=== PATIENT | female | born 1940 | race Caucasian/White ===

== ENCOUNTER 2018-05-20 12:17 | Inpatient (IN) | payer MEDICARE, OTHER ==
[2018-05-20] MEDS: Dextrose 5%-0.45% NaCl 1,000 ML IV SCH ×2 (13:45→19:39)
[2018-05-20] MEDS ORDERED: Docusate Sodium 100 MG Cap PO PRN (13:58)
[2018-05-20] MEDS: cefTRIAXone 1 GM Vial IVPUSH SCH (14:53)
[2018-05-20] MEDS: Acetaminophen 325 MG Tab PO PRN ×2 (14:56→19:38)
[2018-05-20] MEDS ORDERED: TIMOLOL MALEATE PO PRN (15:17)
[2018-05-20] MEDS ORDERED: Baclofen 10 MG Tab PO PRN (15:17)
--- NOTE | 2018-05-20 17:07 | CT ---
[id number] CT/CT Head WO IV EXAM: CT Head WO IV CLINICAL DATA: CONFUSION, FALL 05-20-2018. HAD TRAUMATIC FALL WITH 6 COMPARISON STUDY: None FINDINGS: No intracranial hemorrhage, extra-axial fluid collection, mass, or acute ischemia. Mild changes of chronic small vessel disease throughout the subcortical and periventricular white matter. Paranasal sinuses and mastoid air cells are clear. IMPRESSION: No acute intracranial findings. Jose L Alaniz MD 05/20/18 [id number] Thank you for allowing us to participate in the care of your patient.
[2018-05-20] MEDS: Cholecalciferol (Vitamin D3) 1,000 Unit Tab PO SCH (19:38)
[2018-05-20] MEDS: Simvastatin 10 MG Tab PO SCH (19:38)
[2018-05-20] MEDS: Calcium Carbonate/Vitamin D3 1250 MG-200 Unit Tab PO SCH (19:38)
--- NOTE | 2018-05-20 21:58 | HP ---
CHIEF COMPLAINT: Weakness and ill. HISTORY OF PRESENT ILLNESS: The patient is a 77-year-old female seen by Minerva Mcconnell in the clinic today. She came in with having had a fall early this morning at 2 a.m. The patient had become ill about a week ago with a fever up to 103, was not having a cough, was trying to push fluids, fever on and off yesterday, some headache, lightheadedness. Then, when she went up to the bathroom this morning, she fell against the toilet seat. The toilet seat broke. She had pain on her right anterior chest wall area, pain on breathing. The patient denied passing out or loss of consciousness. She was seen in the clinic by Minerva Mcconnell. The patient has been trying to drink a lot of fluid. She has not had vomiting or throwing up. The patient was having chest pain with inspiration. She was feeling lightheaded. Physical exam in the clinic; she was noted to have a blood pressure 118/80, pulse 80, temperature 96.4, sats are 98% on room air. LABORATORY DATA: Her lab work in the clinic had been done that showed her white blood cell count 5.8, hemoglobin 12.6 with 198 platelets with 83 lymphs, 6 monos. Influenza testing was negative. Her sodium was 130, her potassium 4.7, creatinine 0.88, BUN 15, glucose 146, chloride 94, AST 78, ALT 55, total bili 0.4, alk phos 124, GFR is 62. Urinalysis had 15 ketones, small amount of blood, 100 mg/dL of protein, negative nitrites, negative leukocyte esterase. Plain chest x-ray did show rib fractures which were multiple, so the patient did undergo a CT scan of her chest, which showed contiguous 6th through 11th right- sided posterior rib fractures, 2 of which were mildly comminuted with a right tiny small apical pneumothorax, left lower lobe pneumonia, otherwise negative. Because of concerns for the findings, it was felt she needed to be hospitalized. MEDICATIONS: She is on Zocor 10 mg 1 pill at bedtime, Timoptic 1 drop right eye every morning, vitamin D 1000 units 1 pill 3 times a day, multivitamin 1 pill daily, calcium with vitamin D 1 pill 3 times a day, ibuprofen 200 mg 3 pills 3 times a day as needed for moderate pain, aspirin 81 mg 1 pill a day. ALLERGIES: Penicillin, Alphagan, and baclofen. PAST MEDICAL HISTORY: She has had blepharitis, dense breasts, glaucoma. She has had hyperlipidemia, osteoarthritis of her left hand, osteoporosis. She has had a posterior vitreous detachment. PAST SURGICAL HISTORY: She has had lesions from her left eye. She has had a breast surgery on the right. Core needle biopsy in the right. She has had a selective trabeculectomy on the right, first breast biopsy was in 2008, had cataracts in 2006. She had a colonoscopy. She had eye surgery, fractures, laser trabeculectomy in the left in 2006. The patient had hepatitis B vaccine in 2008, hepatitis A series in 2001 and 2002. She had IPV in 2003, pneumococcal 13 in 2014, pneumococcal 23 in 2007, Tdap in 2011, typhoid in 2006, varicella in 2008, yellow fever in 2007, Zostavax in 2008, Shingrix on 09/13/2017. FAMILY MEDICAL HISTORY: Her father has had heart disease, glaucoma, and alcohol abuse. Mother has had osteoporosis, glaucoma. Maternal grandmother had cancer, leukemia. Brother has had alcohol abuse and the brother has alcohol abuse. The brother has had a hip replacement. She had a sister who had cataracts and glaucoma. SOCIAL HISTORY: She is . The patient is a retired middle school reading teacher. Her is a retired principal. They enjoy world travel. She has a son who is a dentist. The patient does not smoke. She has never used alcohol. REVIEW OF SYSTEMS: The patient is very physically fit. She normally walks quite a bit. Does have some arthritic problems with her hands. Been underweight. No problems with allergies. No nausea. No diarrhea. She has had urgency in the past. No skin lesions. Mood has been good. OBJECTIVE: Vital Signs: The patient's height is 65 inches, weight is 103, blood pressure is 118/80, temperature is 97.4, pulse 80, sats are 98%. Skin: Pale, warm, and dry. Pupils equal and reactive to light. Her pharynx is normal. Neck: Slender. No anterior cervical lymphadenopathy. Heart: Regular rate and rhythm without murmurs or bruits. Breasts are dense. Chest: Her right chest wall area is tender to palpation. There is no bruising. Back: No sores. Abdomen: Soft. Bowel sounds present. Extremities: Lower extremities slender,thin. Neurologic: The patient moves all extremities symmetric. She does appear to be a little bit vague versus a little bit confused. IMPRESSION: 1. Pneumonia. 2. Five rib fractures, 2 of which are comminuted. 3. Pneumothorax on the right. 4. Left pneumonia. 5. Hyponatremia. 6. Osteoporosis. 7. Hypercholesterolemia. PLAN: The patient will be admitted to acute care. We will give IV hydration. We will give her oxygen therapy to help with re-expansion of lungs. She does not require chest tube at this time. We will do an EKG on the patient and place her on Rocephin, being aware that she does have a penicillin allergy. The patient is code level 1 status, and anticipate her to be discharged home. We will make sure that she does not become constipated. We will offer her Tylenol or ibuprofen for pain control. Right now, she may need something stronger, but we will wait to see how she goes. Only offer antithrombotic hose because of fall risk right now. Dr. Isa Mcconnell to assume care. When the patient is able, Lima Quevedo, a nurse practitioner will cover for the patient over the weekend or her covering partner. GM05/20/2018 14:19:45 MODL: 05/20/2018 21:52:40 /[id number]
[2018-05-21] MEDS: Ibuprofen 200 MG Tab PO PRN ×3 (00:59→15:27)
[2018-05-21] MEDS: Dextrose 5%-0.45% NaCl 1,000 ML IV SCH (06:38)
[2018-05-21] MEDS ORDERED: Aspirin 81 MG Tab.Chew PO SCH (08:00)
[2018-05-21] MEDS ORDERED: TIMOLOL MALEATE OP SCH (08:00)
[2018-05-21 08:04] LABS: CHLORIDE,CL 96 mmol/L (98-107); SODIUM,NA 132 mmol/L (136-145)
[2018-05-21 08:05] LABS: ANION GAP 12.2 mmol/L (10-20)
[2018-05-21] MEDS: cefTRIAXone 1 GM Vial IVPUSH SCH (08:13)
[2018-05-21] MEDS: Acetaminophen 325 MG Tab PO PRN ×2 (08:14→22:22)
[2018-05-21] MEDS: Cholecalciferol (Vitamin D3) 1,000 Unit Tab PO SCH ×3 (08:15→22:21)
[2018-05-21] MEDS: Calcium Carbonate/Vitamin D3 1250 MG-200 Unit Tab PO SCH ×3 (08:15→22:21)
[2018-05-21] MEDS: Aspirin 81 MG Tab.Chew PO SCH (08:16)
[2018-05-21] MEDS: Multivitamins with Iron/Calcium/Folic Acid/Minerals Tab PO SCH (08:16)
[2018-05-21] MEDS: TIMOLOL 0.25% EYERT SCH (08:17)
[2018-05-21] MEDS ORDERED: hydrALAZINE 20 MG/ML SDV IVPUSH ONE (11:22)
--- NOTE | 2018-05-21 11:28 | PCM.PN ---
- General Info Date of Service: 05/21/18 Admission Dx/Problem (Free Text): 1. Left side pneumonia 2. 5 rib fractures with 2 of them comminuted fractures 3. Small pneumothorax on the right 4. Hyponatremia 5. Osteoporosis 6. Hypercholesterolemia Functional Status: Reports: Pain Controlled, Tolerating Diet, Ambulating - Review of Systems General: Reports: Weakness HEENT: Reports: No Symptoms Pulmonary: Reports: Shortness of Breath, Pleuritic Chest Pain Gastrointestinal: Reports: No Symptoms Genitourinary: Reports: No Symptoms Musculoskeletal: Reports: No Symptoms Skin: Reports: No Symptoms Neurological: Reports: No Symptoms Psychiatric: Reports: No Symptoms - Patient Data Vitals - Most Recent: Last Vital Signs Temp 36.4 C 05/21/18 10:00 Pulse 56 L 05/21/18 10:00 Resp 16 05/21/18 10:00 BP 194/78 H 05/21/18 10:00 Pulse Ox 98 05/21/18 10:00 Weight - Most Recent: 47.219 kg I&O - Last 24 Hours: Intake & Output 05/20/18 05/21/18 05/21/18 22:59 06:59 14:59 Intake Total 1865 1422 400 Output Total 700 1500 900 Balance 1165 -78 -500 Lab Results Last 24 Hours: Laboratory Results - last 24 hr 05/21/18 05/21/18 Range/Units 07:36 07:36 WBC 4.2 (4.0-10.0) x10^3/uL RBC 3.41 L (4.00-5.50) x10^6/uL Hgb 11.2 L (12.0-16.0) g/dL Hct 33.0 (33.0-47.0) % MCV 96.8 H (78.0-93.0) fL MCH 32.8 H (26.0-32.0) pg MCHC 33.9 (32.0-36.0) g/dL RDW Coeff of Raj 11.9 (10.0-15.0) % Plt Count 182 (130-400) x10^3/uL Neut % (Auto) 58.2 (50.0-80.0) % Lymph % (Auto) 20.8 L (25.0-50.0) % Jones % (Auto) 17.9 H (2.0-11.0) % Eos % (Auto) 2.4 (0.0-4.0) % Baso % (Auto) 0.7 (0.2-1.2) % Sodium 132 L (136-145) mmol/L Potassium 4.2 (3.5-5.1) mmol/L Chloride 96 L (98-107) mmol/L Carbon Dioxide 28 (21-32) mmol/L Anion Gap 12.2 (10-20) mmol/L BUN 10 (7-18) mg/dL Creatinine 0.8 (0.55-1.02) mg/dL Est Cr Clr Drug Dosing 43.20 mL/min Estimated GFR (MDRD) > 60 Glucose 119 H (74-106) mg/dL Calcium 8.4 L (8.5-10.1) mg/dL Corrected Calcium 9.52 (8.5-10.1) mg/dL Total Bilirubin 0.4 (0.2-1.0) mg/dL AST 63 H (15-37) U/L ALT 58 (14-59) U/L Alkaline Phosphatase 105 (46-116) U/L C-Reactive Protein 7.5 H (<=0.9) mg/dL Total Protein 6.4 (6.4-8.2) g/dL Albumin 2.6 L (3.4-5.0) g/dL Globulin 3.8 Albumin/Globulin Ratio 0.68 Med Orders - Current: Current Medications Acetaminophen (Tylenol) 650 mg PO Q4H PRN PRN Reason: Pain (Mild 1-3)/fever Last Admin: 05/21/18 08:14 Dose: 650 mg Aspirin (Aspirin) 81 mg PO DAILY [facility] Last Admin: 05/21/18 08:16 Dose: 81 mg Baclofen (Lioresal) 5 mg PO TID PRN PRN Reason: Spasms Calcium Carbonate (Calcium Carbonate/Vitamin D 1250 Mg-200 Unit) 1 tab PO TID [facility] Last Admin: 05/21/18 08:15 Dose: 1 tab Ceftriaxone Sodium (Rocephin) 1 gm IVPUSH DAILY [facility] Last Admin: 05/21/18 08:13 Dose: 1 gm Cholecalciferol (Vitamin D3) 1,000 units PO TID [facility] Last Admin: 05/21/18 08:15 Dose: 1,000 units Docusate Sodium (Colace) 100 mg PO BID PRN PRN Reason: Constipation Ibuprofen (Motrin) 400 mg PO Q4H PRN PRN Reason: Pain/Fever Last Admin: 05/21/18 09:26 Dose: 400 mg Multivitamins/Minerals (Thera M Plus) 1 tab PO DAILY [facility] Last Admin: 05/21/18 08:16 Dose: 1 tab Patient's Own MedicationTimolol 0.25% Ophth Solution *8 0 each EYERT DAILY [facility] Last Admin: 05/21/18 08:17 Dose: 1 each Simvastatin (Zocor) 10 mg PO BEDTIME [facility] Last Admin: 05/20/18 19:38 Dose: 10 mg Sodium Chloride (Saline Flush) 10 ml FLUSH ASDIRECTED PRN PRN Reason: Keep Vein Open Discontinued Medications Hydralazine HCl (Apresoline) 10 mg IVPUSH ONETIME ONE Stop: 05/21/18 11:23 Dextrose/Sodium Chloride (Dextrose 5%-1/2 Ns) 1,000 mls @ 125 mls/hr IV ASDIRECTED [facility] Last Admin: 05/21/18 06:38 Dose: 125 mls/hr Non-Formulary Medication (Timolol Maleate [Timoptic 0.25% Ophth Soln]) 0.5 mg PO TID PRN PRN Reason: Spasms Non-Formulary Medication (Timolol Maleate [Timoptic 0.25% Ophth Soln]) 1 drop OP DAILY [facility] - Exam General: Alert, Oriented, Cooperative, No Acute Distress HEENT: Pupils Equal, Pupils Reactive, EOMI, Mucous Membr. Moist/[place] Neck: Supple Lungs: Decreased Breath Sounds Cardiovascular: Regular Rate, Regular Rhythm, Other (pain upon palpation on right side ) GI/Abdominal Exam: Normal Bowel Sounds, Soft, Non-Tender, No Distention Back Exam: Normal Inspection Extremities: Normal Inspection, Normal Range of Motion, Non-Tender, No Pedal Edema, Normal Capillary Refill Peripheral Pulses: 3+: Radial (L), Radial (R), Dorsalis Pedis (L), Dorsalis Pedis (R) Skin: Warm, Dry, Intact Neurological: No New Focal Deficit Psy/Mental Status: Alert, Normal Affect, Normal Mood - Problem List Review Problem List Initiated/Reviewed/Updated: Yes - Assessment Assessment:: 1. Left side pneumonia 2. 5 rib fractures with 2 of them comminuted fractures 3. Small pneumothorax on the right 4. Hyponatremia 5. Osteoporosis 6. Hypercholesterolemia - Plan Plan:: 1. Left side pneumonia - Pt will continue to IV Rocephin for the next 24 hours. 2. 5 rib fractures with 2 of them comminuted fractures - Pt continues to use her incentive spirometer and ambulate with staff in the halls - Pt continues to PRN pain medication as needed 3. Small pneumothorax on the right - Pt continues to use her incentive spirometer and ambulate with staff in the halls - Repeat chest xray today 4. Hyponatremia - Pt continues to increase her oral intake. As long as patient continues to take oral intake we will continue to monitor 5. Hypertension - Give IV hydralazine 10mg. Pt was given this in the Clinic with great relief. Pt has been complaining of a headache this am and her blood pressure is elevated again. This headache was also present in the clinic when they have her the hydralazine at that time. 6. Headache - Pt has PRN Tylenol and Ibuprofen as needed for discomfort. Pt did have a CT scan completed yesterday am with negative findings. Pt denies, and numbness, tingling, lightheadedness, blurred vision, memory issues, or any neuro deficits. If the patient continues to progress anticipated plan will be for discharge in 24-48 hours.
[2018-05-21] MEDS: Sodium Chloride 0.9% 10 ML Syringe FLUSH PRN (11:32)
--- NOTE | 2018-05-21 12:48 | CR ---
[id number] RAD/RAD Chest PA And Lateral EXAM: RAD Chest PA And Lateral INDICATION: PNEUMOTHORAX AND PNEUMONIA FOLLOW-UP. COMPARISON: CT chest 2018. DISCUSSION: Again identified are multiple rib fractures on the right. There is a trace apical right pneumothorax which when allowing for differences in technique is likely unchanged when compared to the prior study. Left basilar infiltrate. Pulmonary hyperinflation. IMPRESSION: 1. Trace residual right apical pneumothorax. When allowing for differences in technique, this is likely not significantly changed when compared to the prior study. 2. Left base pulmonary infiltrate. Follow-up imaging after appropriate therapy is recommended. Marito Seay DO 05/21/18 1247 Thank you for allowing us to participate in the care of your patient.
[2018-05-21] MEDS: Simvastatin 10 MG Tab PO SCH (22:22)
[2018-05-22] MEDS ORDERED: hydrALAZINE 20 MG/ML SDV IVPUSH ONE ×2 (07:44→07:52)
[2018-05-22 08:18] LABS: CHLORIDE,CL 93 mmol/L (98-107)
[2018-05-22 08:22] LABS: ANION GAP 11.5 mmol/L (10-20); SODIUM,NA 128 mmol/L (136-145)
[2018-05-22] MEDS: Ondansetron 4 MG/2 ML SDV IVPUSH PRN ×3 (08:24→21:44)
[2018-05-22] MEDS: Calcium Carbonate/Vitamin D3 1250 MG-200 Unit Tab PO SCH ×3 (08:25→21:46)
[2018-05-22] MEDS: Sodium Chloride 0.9% 10 ML Syringe FLUSH PRN ×4 (08:25→21:43)
[2018-05-22] MEDS: Aspirin 81 MG Tab.Chew PO SCH (08:25)
[2018-05-22] MEDS: Multivitamins with Iron/Calcium/Folic Acid/Minerals Tab PO SCH (08:26)
[2018-05-22] MEDS: Cholecalciferol (Vitamin D3) 1,000 Unit Tab PO SCH ×3 (08:26→21:46)
[2018-05-22] MEDS: cefTRIAXone 1 GM Vial IVPUSH SCH (08:30)
[2018-05-22] MEDS: TIMOLOL 0.25% EYERT SCH (08:30)
[2018-05-22] MEDS ORDERED: HYDROmorphone 1 MG/ML Syringe IVPUSH ONE (11:09)
[2018-05-22] MEDS ORDERED: Ondansetron 4 MG/2 ML SDV IVPUSH ONE (11:45)
[2018-05-22] MEDS ORDERED: Acetaminophen/HYDROcodone 325-10 MG Tab PO PRN (12:32)
--- NOTE | 2018-05-22 12:43 | PCM.PN ---
- General Info Date of Service: 05/22/18 Admission Dx/Problem (Free Text): 1. Right side pneumonia 2. 5 rib fractures with 2 of them comminuted fractures 3. Small pneumothorax on the right 4. Hyponatremia 5. Osteoporosis 6. Hypercholesterolemia Subjective Update: Patient continues to have nausea and vomiting, possible due to pain medication. She had been out of bed yesterday but not so much today due to pain. Appetite have been poor. She rests comfortably in bed. She is trying to use her IS, but has not been all that successful. Patient was given Zofran this AM due to N/V, with good relief. Pain is still a 5/10 at rest. Functional Status: Reports: Urinating. Denies: Ambulating Pain Score: 5 - Review of Systems General: Denies: Fever, Chills Pulmonary: Denies: Shortness of Breath, Cough Cardiovascular: Denies: Chest Pain, Palpitations Gastrointestinal: Reports: Nausea, Vomiting. Denies: Abdominal Pain Skin: Reports: No Symptoms Neurological: Reports: No Symptoms - Patient Data Vitals - Most Recent: Last Vital Signs Temp 36.6 C 05/22/18 09:58 Pulse 67 05/22/18 09:58 Resp 16 05/22/18 05:37 BP 153/85 H 05/22/18 11:00 Pulse Ox 97 05/22/18 09:58 Weight - Most Recent: 47.219 kg I&O - Last 24 Hours: Intake & Output 05/21/18 05/22/18 05/22/18 22:59 06:59 14:59 Intake Total 200 120 Output Total 1100 1 250 Balance -1100 199 -130 Lab Results Last 24 Hours: Laboratory Results - last 24 hr 05/22/18 05/22/18 Range/Units 07:30 07:30 WBC 4.1 (4.0-10.0) x10^3/uL RBC 3.50 L (4.00-5.50) x10^6/uL Hgb 11.4 L (12.0-16.0) g/dL Hct 33.4 (33.0-47.0) % MCV 95.4 H (78.0-93.0) fL MCH 32.6 H (26.0-32.0) pg MCHC 34.1 (32.0-36.0) g/dL RDW Coeff of Raj 11.7 (10.0-15.0) % Plt Count 230 (130-400) x10^3/uL Neut % (Auto) 62.6 (50.0-80.0) % Lymph % (Auto) 21.0 L (25.0-50.0) % [place] % (Auto) 14.5 H (2.0-11.0) % Eos % (Auto) 1.7 (0.0-4.0) % Baso % (Auto) 0.2 (0.2-1.2) % Sodium 128 L* (136-145) mmol/L Potassium 4.5 (3.5-5.1) mmol/L Chloride 93 L (98-107) mmol/L Carbon Dioxide 28 (21-32) mmol/L Anion Gap 11.5 (10-20) mmol/L BUN 13 (7-18) mg/dL Creatinine 0.7 (0.55-1.02) mg/dL Est Cr Clr Drug Dosing 49.37 mL/min Estimated GFR (MDRD) > 60 Glucose 98 (74-106) mg/dL Calcium 8.5 (8.5-10.1) mg/dL Corrected Calcium 9.62 (8.5-10.1) mg/dL Total Bilirubin 0.4 (0.2-1.0) mg/dL AST 60 H (15-37) U/L ALT 65 H (14-59) U/L Alkaline Phosphatase 105 (46-116) U/L Total Protein 6.4 (6.4-8.2) g/dL Albumin 2.6 L (3.4-5.0) g/dL Globulin 3.8 Albumin/Globulin Ratio 0.68 Med Orders - Current: Current Medications Acetaminophen (Tylenol) 650 mg PO Q4H PRN PRN Reason: Pain (Mild 1-3)/fever Last Admin: 05/21/18 22:22 Dose: 650 mg Hydrocodone Bitart/Acetaminophen (Chelsea 325-10 Mg) 1 tab PO Q6H PRN PRN Reason: Pain Aspirin (Aspirin) 81 mg PO DAILY [facility] Last Admin: 05/22/18 08:25 Dose: Not Given Baclofen (Lioresal) 5 mg PO TID PRN PRN Reason: Spasms Last Admin: 05/21/18 22:21 Dose: 5 mg Calcium Carbonate (Calcium Carbonate/Vitamin D 1250 Mg-200 Unit) 1 tab PO TID [facility] Last Admin: 05/22/18 11:22 Dose: Not Given Ceftriaxone Sodium (Rocephin) 1 gm IVPUSH DAILY [facility] Last Admin: 05/22/18 08:30 Dose: 1 gm Cholecalciferol (Vitamin D3) 1,000 units PO TID [facility] Last Admin: 05/22/18 11:22 Dose: Not Given Docusate Sodium (Colace) 100 mg PO BID PRN PRN Reason: Constipation Ibuprofen (Motrin) 400 mg PO Q4H PRN PRN Reason: Pain/Fever Last Admin: 05/21/18 15:27 Dose: 400 mg Multivitamins/Minerals (Thera M Plus) 1 tab PO DAILY [facility] Last Admin: 05/22/18 08:26 Dose: Not Given Ondansetron HCl (Zofran) 4 mg IVPUSH Q8H PRN PRN Reason: Nausea Last Admin: 05/22/18 08:24 Dose: 4 mg Patient's Own MedicationTimolol 0.25% Ophth Solution *8 0 each EYERT DAILY [facility] Last Admin: 05/22/18 08:30 Dose: 1 each Simvastatin (Zocor) 10 mg PO BEDTIME [facility] Last Admin: 05/21/18 22:22 Dose: 10 mg Sodium Chloride (Saline Flush) 10 ml FLUSH ASDIRECTED PRN PRN Reason: Keep Vein Open Last Admin: 05/22/18 11:18 Dose: 10 ml Discontinued Medications Hydralazine HCl (Apresoline) 10 mg IVPUSH ONETIME ONE Stop: 05/21/18 11:23 Last Admin: 05/21/18 11:32 Dose: 10 mg Hydralazine HCl (Apresoline) 10 mg IVPUSH ONETIME ONE Stop: 05/22/18 07:45 Last Admin: 05/22/18 10:48 Dose: Not Given Hydralazine HCl (Apresoline) 5 mg IVPUSH ONETIME ONE Stop: 05/22/18 07:53 Last Admin: 05/22/18 08:25 Dose: 5 mg Hydromorphone HCl (Dilaudid) 1 mg IVPUSH ONETIME ONE Stop: 05/22/18 11:10 Last Admin: 05/22/18 11:17 Dose: 1 mg Dextrose/Sodium Chloride (Dextrose 5%-1/2 Ns) 1,000 mls @ 125 mls/hr IV ASDIRECTED [facility] Last Admin: 05/21/18 06:38 Dose: 125 mls/hr Non-Formulary Medication (Timolol Maleate [Timoptic 0.25% Ophth Soln]) 0.5 mg PO TID PRN PRN Reason: Spasms Non-Formulary Medication (Timolol Maleate [Timoptic 0.25% Ophth Soln]) 1 drop OP DAILY [facility] Ondansetron HCl (Zofran) 4 mg IVPUSH ONETIME ONE Stop: 05/22/18 11:46 Last Admin: 05/22/18 11:52 Dose: 4 mg - Exam General: Alert, Oriented, Cooperative, No Acute Distress Lungs: Decreased Breath Sounds (RLL otherwise clear throughout; chest wall tenderness to palpation right lateral) Cardiovascular: Regular Rate, Regular Rhythm GI/Abdominal Exam: Normal Bowel Sounds, Soft, Non-Tender Skin: Warm, Dry, Intact Neurological: No New Focal Deficit - Problem List Review Problem List Initiated/Reviewed/Updated: Yes - My Orders Last 24 Hours: My Active Orders 05/22/18 07:44 Ondansetron [Zofran] 4 mg IVPUSH Q8H PRN 05/22/18 12:32 Acetaminophen/HYDROcodone [Chelsea 325-10 MG] 1 tab PO Q6H PRN 05/22/18 12:33 Respiratory Care Assess and Treatment [CONS] Routine 05/22/18 12:34 Turn, Cough, Deep Breathe [RC] Q2H - Assessment Assessment:: 1. Right side pneumonia 2. 5 rib fractures with 2 of them comminuted fractures 3. Small pneumothorax on the right 4. Hyponatremia 5. Osteoporosis 6. Hypercholesterolemia - Plan Plan:: 1. Right side pneumonia - Pt will continue to IV Rocephin. 2. 5 rib fractures with 2 of them comminuted fractures - Pt continues to use her incentive spirometer and ambulate with staff in the halls - Pt continues to PRN pain medication as needed 3. Small pneumothorax on the right - Pt continues to use her incentive spirometry and ambulate with staff in the halls - Stable 4. Hyponatremia - Pt continues to increase her oral intake. As long as patient continues to take oral intake we will continue to monitor 5. Hypertension - Give IV hydralazine 10mg for hypertension and headache. Has good relief for a couple hours but then bp will rise again with headache; will start PO [place] to see if this help as her symptoms could be related to pain 6. Headache - Pt has PRN Tylenol and Ibuprofen as needed for discomfort. Pt did have a CT scan completed two days ago with negative findings. Pt denies, and numbness, tingling, lightheadedness, blurred vision, memory issues, or any neuro deficits. Patient is very slow to progress, especially with BP control and headache. Would like to see patient up and walking in the halls with minimal assist. May consider SB if needed.
[2018-05-22] MEDS: Simvastatin 10 MG Tab PO SCH (21:47)
[2018-05-22] MEDS: Ibuprofen 200 MG Tab PO PRN (22:43)
[2018-05-23 07:27] LABS: CHLORIDE,CL 88 mmol/L (98-107)
[2018-05-23 07:36] LABS: ANION GAP 14.8 mmol/L (10-20)
[2018-05-23 08:04] LABS: SODIUM,NA 124 mmol/L (136-145)
[2018-05-23] MEDS: Aspirin 81 MG Tab.Chew PO SCH (08:05)
[2018-05-23] MEDS: Ondansetron 4 MG/2 ML SDV IVPUSH PRN (08:05)
[2018-05-23] MEDS: cefTRIAXone 1 GM Vial IVPUSH SCH (08:05)
[2018-05-23] MEDS: TIMOLOL 0.25% EYERT SCH (08:06)
[2018-05-23] MEDS: Multivitamins with Iron/Calcium/Folic Acid/Minerals Tab PO SCH (08:06)
[2018-05-23] MEDS: Calcium Carbonate/Vitamin D3 1250 MG-200 Unit Tab PO SCH ×3 (08:06→19:32)
[2018-05-23] MEDS: Cholecalciferol (Vitamin D3) 1,000 Unit Tab PO SCH ×3 (08:06→19:32)
[2018-05-23] MEDS ORDERED: Magnesium Sulfate/Water 50 ML IV ONE (08:09)
[2018-05-23] MEDS: amLODIPine 2.5 MG Tab PO SCH (08:38)
[2018-05-23] MEDS: Metoclopramide 10 MG/2 ML SDV IVPUSH SCH ×3 (11:10→19:31)
[2018-05-23] MEDS ORDERED: Labetalol 20 MG/4 ML Syringe IVPUSH ONE (14:24)
--- NOTE | 2018-05-23 14:57 | PN ---
Progress Note for REYNA GOMEZ Date: 05/23/2018 Room #: [facility] HISTORY OF PRESENT ILLNESS: This is hospital day #4 on a 77-year-old who presented to the clinic with a fall, fever, and cough, concern for pneumonia on the . She has been on IV Rocephin. She states she is no longer coughing. She is not short of breath, but she has been very sick to her stomach. She has been getting some Zofran. She has not had much of an appetite. When she presented, she had hyponatremia, which is new for her. Her sodium was 130. It has trended down to 128, now 124. She has also been having headaches. She tells me the headache started about a week before she fell. Her blood pressure also went up and she does not have a history of hypertension. She has been getting IV hydralazine, last dose was yesterday morning, but still even when her blood pressure is better, her headache remains. Readings have been as low as 143/76. Otherwise, she did get a hydrocodone yesterday. She rates her head pain as an 8/10, but her rib pain is like 1 or 2/10 unless she is moving. She did break some ribs on the right and had a pneumonia on the left lower lobe. OBJECTIVE: Vital signs: This morning, the patient has a 98.3 temp, pulse 87, blood pressure 155/75, respiratory rate 16, O2 of 97% on room air. General: She is in no acute distress. Heart: Regular rate and rhythm. S1, S2 without murmur. Lungs: Lung sounds are clear to auscultation bilaterally without crackles or wheezes. Abdomen: Positive bowel sounds. Soft and nontender. Extremities: Warm and dry. No edema. Mental Status: Alert and orientated x3. Eyes: Pupils were equal, round, and reactive to light. LABORATORY DATA: Lab work today did show her sodium 124, potassium 3.8, chloride 88, bicarb 25, BUN 16, creatinine 0.7, glucose 86, uric acid low at 2.4, calcium 8.8. Magnesium low at 1.6. Yesterday, ALT had increased slightly from 58 to 65, AST had trended down from 63 to 60, albumin 2.6. ASSESSMENT: 1. Hyponatremia, worsening, could be due to pain and some syndrome of inappropriate antidiuretic hormone secretion. We will send off a urine and serum osmolality as well as a urine sodium. She is not on any fluids. We will give her liberal salt for now in her diet, otherwise. 2. Elevated blood pressures with no history of hypertension. I am going to go ahead and try some IV labetalol and schedule some oral Norvasc. 3. Headaches. We will check an inflammatory marker in the morning, the ESR. Otherwise, she has had a head CT. We can consider an MRI. She does have a history of migraines by her report. It seems like a frontal headache in nature. We will continue with p.r.n. Motrin, hydrocodone for worsening pain. 4. Nausea. I am going to go ahead and schedule some Reglan, see if this improves her appetite. 5. Hypomagnesemia. I will replace IV. See if this also helps her headache. 6. Pneumonia. She has now had at least 3 days of IV Rocephin. She is asymptomatic. I think we will stop antibiotics and continue to monitor in case the antibiotics are making her sick. 7. Right-sided rib fractures. These are just causing her some mild pain. We will continue with supportive cares. We will continue incentive spirometry. 8. Small pneumothorax on the right. No indication that this is worsening. 9. Osteoporosis. 10.Hyperlipidemia. PLAN: At this point, the patient will continue acute cares. We will do further workup and treatment of her hyponatremia. We will replace magnesium IV. We will repeat lab work tomorrow. We will aggressively treat her high blood pressure, especially in the setting of headaches. We will get her up and moving with therapies. MKA: 05/23/2018 14:34:46 MODL: 05/23/2018 14:52:55 /[id number]
[2018-05-23] MEDS: Simvastatin 10 MG Tab PO SCH (19:31)
[2018-05-23] MEDS: Sodium Chloride 0.9% 10 ML Syringe FLUSH PRN (19:31)
[2018-05-24 06:46] LABS: CHLORIDE,CL 97 mmol/L (98-107); SODIUM,NA 135 mmol/L (136-145)
[2018-05-24 06:48] LABS: ANION GAP 10.4 mmol/L (10-20)
[2018-05-24] MEDS: amLODIPine 2.5 MG Tab PO SCH (08:01)
[2018-05-24] MEDS: Aspirin 81 MG Tab.Chew PO SCH (08:01)
[2018-05-24] MEDS: Metoclopramide 10 MG/2 ML SDV IVPUSH SCH (08:02)
[2018-05-24] MEDS: Calcium Carbonate/Vitamin D3 1250 MG-200 Unit Tab PO SCH (08:03)
[2018-05-24] MEDS: Multivitamins with Iron/Calcium/Folic Acid/Minerals Tab PO SCH (08:03)
[2018-05-24] MEDS: Cholecalciferol (Vitamin D3) 1,000 Unit Tab PO SCH (08:03)
[2018-05-24] MEDS: TIMOLOL 0.25% EYERT SCH (08:07)
--- NOTE | 2018-05-25 03:26 | DISCH ---
PRIMARY DISCHARGE DIAGNOSES: 1. A fall with right-sided rib fractures. 2. Hyponatremia, resolved with sodium of 135 on discharge. 3. Left lower lobe pneumonia without cough, but she had a fever. Completed 3 days of IV Rocephin. 4. Elevated blood pressure with no underlying history of hypertension. Started on Norvasc and doing well. 5. Headaches. Started at least a week prior to admission. Mildly elevated inflammation marker of 45 on ESR, improving on discharge without any other intervention other than treating blood pressures. 6. Nausea, improved with Reglan. 7. Hypomagnesemia, replaced IV. 8. Small pneumothorax on the right. No trouble breathing. No indication that this is worsening. Repeat x-ray outpatient. 9. Osteoporosis. 10.Hyperlipidemia. 11.Moderate malnutrition. REASON FOR ADMISSION: On the date of admission, this 77-year-old female presented to the clinic with reported fever, fall, and cough. However, her and her both deny that there was any coughing, but he states her fever was up to 103. She had been having some headache or dizziness and got up during the night to go to the bathroom. The patient's white count was not elevated. She did receive some IV Rocephin. She had a chest CT to further evaluate her lungs. She had the influenza testing through the clinic. She had a UA, which did not show any infection, and her sodium was found to be 130. Sodium did go down to 124 during her stay, but normalized up to 135. She was receiving some IV hydralazine, and yesterday I added IV labetalol. I did some urine osmolality and sodium, but those are pending on discharge. Her uric acid was low. Her serum osmolality was also low at 254. Liver enzymes mildly elevated. AST 63, then 60; ALT 58, then 65. Albumin also low at 2.6. The patient was up, working with therapy. She was eating better up to 100% of her meals, so was deemed today to be stable for discharge. DISCHARGE PLANS AND INSTRUCTIONS: She will follow up in the clinic with Dr. Mcconnell in 1 week. She will take magnesium 400 daily. That will be good for headaches. New medication, Norvasc 2.5 daily, and will stop in the clinic later this week for a blood pressure check. Side effects discussed. No lab work due at her followup visit. May use Reglan if needed for the nausea. Tylenol and Motrin also were okay to use for headache. PHYSICAL EXAMINATION: Vital Signs: Discharging vitals do include a temperature of 97.8, pulse 75, blood pressure 146/73, respiratory rate 16, and O2 of 97% on room air. General: She is in no acute distress. Heart: Regular rate and rhythm without murmur. Lungs: Sounds were clear to auscultation bilaterally without crackles or wheezes. Abdomen: Has positive bowel sounds, soft, nontender. Extremities: Warm and dry. No edema. Her gait, she is up and walking around. She is not off balance. She denied any dizziness. MKA: 05/24/2018 16:33:03 MODL: 05/25/2018 03:18:10 /[id number] MTDD
== END 2018-05-24 10:00 | disposition home or self-care (01) | DRG 194 ==
LOC: VM.MS 12:52
PROVIDERS: ADMIT Family Medicine; ATTEND Internal Medicine
DX: J18.9 Pneumonia, unspecified organism (principal); S22.41XA Multiple fractures of ribs, right side, initial encounter for closed fracture; S27.0XXA Traumatic pneumothorax, initial encounter; E87.1 Hypo-osmolality and hyponatremia; E44.0 Moderate protein-calorie malnutrition; Z68.1 Body mass index [BMI] 19.9 or less, adult; E78.5 Hyperlipidemia, unspecified; W18.39XA Other fall on same level, initial encounter; Y92.002 Bathroom of unspecified non-institutional (private) residence as the place of occurrence of the external cause; R51 Headache; E83.42 Hypomagnesemia; I10 Essential (primary) hypertension; R11.2 Nausea with vomiting, unspecified; H40.9 Unspecified glaucoma; M19.042 Primary osteoarthritis, left hand; M81.0 Age-related osteoporosis without current pathological fracture; E78.00 Pure hypercholesterolemia, unspecified; Z88.0 Allergy status to penicillin; Z88.8 Allergy status to other drugs, medicaments and biological substances; Z98.890 Other specified postprocedural states
CPT/HCPCS: 36415; 70450; 71046; 80048; 80053; 83735; 83930; 83935; 84295; 84550; 85025; 85652; 86140; 93005; 94760; 97116-GP; 97161-GP; A9270-GY; J0360; J0696; J1170; J2405; J2765; J3475; J3490; J7042

== ENCOUNTER 2021-09-18 21:31 | Emergency (ER) | payer MEDICARE, OTHER ==
[2021-09-18] MEDS ORDERED: GI Cocktail Oral Solution 30 ML PO ONE (21:57)
[2021-09-18 22:24] LABS: CHLORIDE,CL 102 mmol/L (98-107); SODIUM,NA 141 mmol/L (136-145)
[2021-09-18 22:25] LABS: ANION GAP 14.1 mmol/L (5-15)
== END 2021-09-19 00:08 | disposition home or self-care (01) ==
LOC: VM.ED 21:31
DX: R07.89 Other chest pain (principal); Z88.0 Allergy status to penicillin; Z88.8 Allergy status to other drugs, medicaments and biological substances; Z79.82 Long term (current) use of aspirin; Z79.899 Other long term (current) drug therapy
CPT/HCPCS: 36415; 71045; 80053; 83880; 84484; 85025; 93005; 99285; A9270

== ENCOUNTER 2023-11-20 15:55 | Emergency (ER) | payer MEDICARE, OTHER ==
[2023-11-20] MEDS: Ketorolac 30 MG/ML SDV IM ONE (17:38)
== END 2023-11-20 17:48 | disposition home or self-care (01) ==
LOC: VM.ED 15:55
DX: R51.9 Headache, unspecified (principal); I10 Essential (primary) hypertension; E78.00 Pure hypercholesterolemia, unspecified; Z79.82 Long term (current) use of aspirin; Z79.899 Other long term (current) drug therapy; Z88.0 Allergy status to penicillin; Z88.1 Allergy status to other antibiotic agents
CPT/HCPCS: 70450; 72125; 96372; 99284; J1885

== ENCOUNTER 2024-02-11 09:13 | Emergency (ER) | payer MEDICARE, OTHER ==
[2024-02-11 09:44] LABS: BASOPHILS PERCENT AUTO 0.6 % (0.2-1.2); EOSINOPHILS ABSOLUTE AUTO 0.2 x10^3/uL (0.0-0.5); EOSINOPHILS PERCENT AUTO 3.6 % (0.0-4.0); HEMOGLOBIN 13.2 g/dL (12.0-16.0); IMMATURE GRAN ABSOLUTE AUTO 0.01 x10^3/uL (0.00-0.07); LYMPHOCYTES ABSOLUTE AUTO 1.5 x10^3/uL (1.0-4.8); LYMPHOCYTES PERCENT AUTO 23.6 % (25.0-50.0); MEAN CORPUSCULAR HEMOGLOBIN 33.2 pg (26.0-32.0); MEAN CORPUSCULAR HGB CONC 34.7 g/dL (32.0-36.0); MEAN CORPUSCULAR VOLUME 95.7 fL (78.0-93.0); MONOCYTES ABSOLUTE AUTO 0.7 x10^3/uL (0.0-0.8); MONOCYTES PERCENT AUTO 10.9 % (2.0-11.0); NEUTROPHILS ABSOLUTE AUTO 3.9 x10^3/uL (1.8-7.7); NEUTROPHILS PERCENT AUTO 61.1 % (50.0-80.0); PLATELET COUNT,PLT 184 x10^3/uL (130-400); RED BLOOD CELL COUNT 3.97 x10^6/uL (4.00-5.50); WHITE BLOOD CELL COUNT,WBC 6.4 x10^3/uL (4.0-10.0)
[2024-02-11] MEDS: Nitroglycerin 0.4 MG Tab.SL SL ONE (09:58)
[2024-02-11] MEDS: Acetaminophen 500 MG Tab PO ONE (09:58)
[2024-02-11 10:00] LABS: CALCIUM 9.6 mg/dL (8.5-10.1); CREATININE 0.8 mg/dL (0.55-1.02); EST CRCL DRUG DOSING (CG) 37.37 mL/min; POTASSIUM,K 4.7 mmol/L (3.5-5.1)
[2024-02-11 10:02] LABS: ANION GAP 10.7 mmol/L (5-15)
[2024-02-11 10:08] LABS: AMYLASE 60 U/L (25-115); LIPASE 38 U/L (19-71)
== END 2024-02-11 10:52 | disposition home or self-care (01) ==
LOC: VM.ED 09:13
DX: R07.89 Other chest pain (principal); I10 Essential (primary) hypertension; E78.00 Pure hypercholesterolemia, unspecified; Z79.82 Long term (current) use of aspirin; Z79.899 Other long term (current) drug therapy; Z88.0 Allergy status to penicillin; Z88.8 Allergy status to other drugs, medicaments and biological substances
CPT/HCPCS: 71045; 80048; 82150; 83690; 84484; 85025; 93005; 93010; 99284; 99285; A9270-GY